=== PATIENT | female | born 1995 | race Caucasian/White ===

== ENCOUNTER 2025-02-24 22:00 | Day surgery (SDC) | payer OTHER ==
[2025-02-24] MEDS ORDERED: hydrALAZINE 20 MG/ML VIAL SLOW IVP PRN (22:33)
[2025-02-24 22:40] VITALS: BMI 33.6
[2025-02-24] MEDS: Acetaminophen 500 MG TAB PO SCH (22:51)
== END 2025-02-25 00:23 | disposition home or self-care (01) ==
LOC: CSHLD/OP 22:00
PROVIDERS: ATTEND Family Medicine
DX: O99.891 Other specified diseases and conditions complicating pregnancy (principal); M79.10 Myalgia, unspecified site; O99.013 Anemia complicating pregnancy, third trimester; Z3A.36 36 weeks gestation of pregnancy; Z88.0 Allergy status to penicillin; Z79.899 Other long term (current) drug therapy
CPT/HCPCS: 99283

== ENCOUNTER 2025-03-14 22:20 | Day surgery (SDC) | payer OTHER ==
[2025-03-14] MEDS ORDERED: hydrALAZINE 20 MG/ML VIAL SLOW IVP PRN (22:42)
== END 2025-03-15 01:55 | disposition home or self-care (01) ==
LOC: CSHLD/OP 22:20
PROVIDERS: ATTEND Obstetrics & Gynecology
DX: O47.1 False labor at or after 37 completed weeks of gestation (principal); O99.013 Anemia complicating pregnancy, third trimester; D50.9 Iron deficiency anemia, unspecified; Z3A.39 39 weeks gestation of pregnancy; Z67.40 Type O blood, Rh positive; Z88.0 Allergy status to penicillin; Z79.899 Other long term (current) drug therapy
CPT/HCPCS: 99283

== ENCOUNTER 2025-03-20 08:01 | Inpatient (IN) | payer OTHER ==
[2025-03-20] MEDS ORDERED: Ibuprofen 800 MG TAB PO PRN (08:26)
[2025-03-20] MEDS ORDERED: Methylergonovine 0.2 MG/ML VIAL IM PRN ×2 (08:26→13:26)
[2025-03-20] MEDS ORDERED: Ondansetron PF 4 MG/2 ML Vial IVP PRN ×2 (08:26→13:26)
[2025-03-20] MEDS ORDERED: HYDROcodone/Acetaminophen 5/325 mg Tablet PO PRN ×2 (08:26)
[2025-03-20] MEDS ORDERED: Lidocaine 1% (PF) 30 ML VIAL SC PRN (08:26)
[2025-03-20] MEDS ORDERED: hydrALAZINE 20 MG/ML VIAL SLOW IVP PRN ×2 (08:26→13:26)
[2025-03-20] MEDS ORDERED: Oxytocin 30 units/NS 500 ML 500 ML IV SCH ×2 (08:30→13:30)
[2025-03-20 08:32] VITALS: BMI 34.7
[2025-03-20 08:56] LABS: Hematocrit 40.2 % (34.9-44.5); Hemoglobin 13.1 g/dL (12.0-15.5); Mean Corpuscular Hemoglobin 27.3 pg (27.0-33.0); Mean Corpuscular Volume 83.9 fL (81.6-98.3); Platelet Count 204 10x3/uL (150-450); Red Blood Cell (RBC) Count 4.79 10x6/uL (3.90-5.03); White Blood Cell (WBC) Count 11.26 10x3/uL (3.5-10.5)
[2025-03-20] MEDS: fentaNYL/Ropivacaine Epidural 100 ML ONE (09:17)
[2025-03-20] MEDS ORDERED: diphenhydrAMINE 50 MG/ML VIAL IVP PRN (09:31)
[2025-03-20] MEDS ORDERED: Acetaminophen 325 MG TAB PO PRN (09:31)
[2025-03-20 09:32] LABS: Hep B Surf Ag - L&D Non-Reactive S/CO (NonReactive)
[2025-03-20 09:33] LABS: Syphilis Antibody Index 0.06 S/CO (<1.00 Non-Reactive)
[2025-03-20] MEDS ORDERED: fentaNYL 2 mcg/Ropivacaine 0.2% Epidural 100 ML CADD EPIDURAL SCH (09:45)
[2025-03-20] MEDS ORDERED: Communication Order-Pharmacy FS SCH (09:45)
[2025-03-20] MEDS: Ondansetron PF 4 MG/2 ML Vial IVP PRN (10:20)
[2025-03-20] MEDS ORDERED: Lanolin Ointment 7 GM TUBE TOP PRN (13:26)
[2025-03-20] MEDS ORDERED: Milk Of Magnesia 30 ML UDCUP PO PRN (13:26)
[2025-03-20] MEDS ORDERED: Boostrix 0.5 ML (Tdap) VIAL (>/=7 yrs of age) IM ONE (13:26)
[2025-03-20] MEDS ORDERED: Preparation H Ointment 28 GM TUBE PR PRN (13:26)
[2025-03-20] MEDS ORDERED: Bisacodyl 10 MG SUPP PR PRN (13:26)
[2025-03-20] MEDS ORDERED: diphenhydrAMINE 25 MG CAP PO PRN (13:26)
[2025-03-20] MEDS ORDERED: Methylergonovine 0.2 MG TAB PO PRN (13:26)
[2025-03-20 15:05] LABS: Hep B Core IgM Index 0.09 S/CO (0-0.79)
[2025-03-20] MEDS: Ferrous Sulfate 325 MG TAB PO SCH (16:19)
[2025-03-20] MEDS: Ibuprofen 800 MG TAB PO SCH (16:19)
[2025-03-21 06:08] LABS: Hematocrit 30.8 % (34.9-44.5); Hemoglobin 10.0 g/dL (12.0-15.5); Mean Corpuscular Hemoglobin 28.0 pg (27.0-33.0); Mean Corpuscular Volume 86.3 fL (81.6-98.3); Platelet Count 157 10x3/uL (150-450); Red Blood Cell (RBC) Count 3.57 10x6/uL (3.90-5.03); White Blood Cell (WBC) Count 11.63 10x3/uL (3.5-10.5)
[2025-03-21] MEDS: Benzocaine-Menthol 82.5 ML CAN TOP PRN (06:26)
[2025-03-21] MEDS ORDERED: Bupivacaine 0.25% HCL 30 ML VIAL ONE (08:00)
[2025-03-22 08:49] VITALS: BP 131/76; TEMP 97.9
== END 2025-03-22 17:48 | disposition home or self-care (01) | DRG 807 ==
LOC: CSHLD/OP 08:01 → CSHLD 08:32 → CSHPP 15:30
PROVIDERS: ADMIT Emergency Medicine; ATTEND Emergency Medicine
PROC: 10E0XZZ Delivery of Products of Conception, External Approach (ICD-10-PCS; principal; 2025-03-20)
PROC: 0KQM0ZZ Repair Perineum Muscle, Open Approach (ICD-10-PCS; 2025-03-20)
PROC: 10907ZC Drainage of Amniotic Fluid, Therapeutic from Products of Conception, Via Natural or Artificial Opening (ICD-10-PCS; 2025-03-20)
DX: O48.0 Post-term pregnancy (principal); Z37.0 Single live birth; D50.9 Iron deficiency anemia, unspecified; O99.02 Anemia complicating childbirth; O70.1 Second degree perineal laceration during delivery; Z3A.40 40 weeks gestation of pregnancy; Z88.0 Allergy status to penicillin; Z79.899 Other long term (current) drug therapy; Z79.82 Long term (current) use of aspirin
CPT/HCPCS: 36415; 51702; 85027; 86705; 86780; 86850; 86900; 86901; 87340; 99285; J0665; J2405